=== PATIENT | female | born 1970 | race Caucasian/White ===

== ENCOUNTER 2017-09-23 13:33 | Emergency (ER) | payer OTHER ==
[~2017-09-23] VITALS: Ht 157.5 cm; Wt 59.9 kg
[2017-09-23 13:35] VITALS: BP 158/82
[2017-09-23] MEDS ORDERED: LISI5TAB7 PO (13:53)
[2017-09-23] MEDS ORDERED: INSU100I28 SQ (13:53)
[2017-09-23] MEDS ORDERED: SIMV10TA3 PO (13:53)
[2017-09-23] MEDS ORDERED: EMPA1TAB7 PO (13:53)
[2017-09-23] MEDS ORDERED: METHOCARBAMOL 750 MG TABLET PO ONE (14:00)
[2017-09-23] MEDS ORDERED: HYDROcodone/APAP 5/325 TABLET PO ONE (14:00)
[2017-09-23] MEDS ORDERED: KETOROLAC 30 MG/1 ML IM ONE (14:00)
[2017-09-23] MEDS ORDERED: ONDANSETRON ODT 4 MG PO ONE (14:00)
[2017-09-23] MEDS ORDERED: HYDROcodone/APAP 5/325 TABLET ONE (14:04)
[2017-09-23] MEDS ORDERED: ONDANSETRON ODT 4 MG ONE (14:04)
[2017-09-23] MEDS ORDERED: METHOCARBAMOL 750 MG TABLET ONE (14:04)
[2017-09-23] MEDS ORDERED: KETOROLAC 30 MG/1 ML ONE (14:04)
== END 2017-09-23 14:51 | disposition home or self-care (01) ==
LOC: ED 14:00
DX: M54.42 Lumbago with sciatica, left side (principal); I10 Essential (primary) hypertension; E11.9 Type 2 diabetes mellitus without complications; Z79.4 Long term (current) use of insulin
CPT/HCPCS: 72110; 96372; 99284; J1885; Q0162